=== PATIENT | male | born 1960 | race Two or more races ===

== ENCOUNTER 2021-11-05 16:33 | Emergency (ER) | payer OTHER ==
[~2021-11-05] VITALS: Ht 172.7 cm; Wt 88.9 kg
[2021-11-05] MEDS ORDERED: LIPITOR (18:01)
[2021-11-05] MEDS ORDERED: MONTELUKA (18:02)
[2021-11-05] MEDS ORDERED: FLUTICASONE PROPIONA (18:03)
[2021-11-05] MEDS ORDERED: SALMETEROL (18:04)
[2021-11-05] MEDS ORDERED: ALBUTEROL (18:04)
[2021-11-05] MEDS ORDERED: SYNTHROID (18:05)
[2021-11-05] MEDS ORDERED: PROTONIX (18:05)
== END 2021-11-05 22:59 | disposition home or self-care (01) ==
LOC: ER 16:33
DX: J44.1 Chronic obstructive pulmonary disease with (acute) exacerbation (principal)

== ENCOUNTER 2022-01-18 19:00 | Emergency (ER) | payer OTHER ==
[~2022-01-18] VITALS: Ht 175.3 cm; Wt 82.1 kg
[~2022-01-18 19:00] MED LIST: ALBUTEROL; FLUTICASONE PROPIONA; LIPITOR; MONTELUKA; PROTONIX; SALMETEROL; SYNTHROID
[2022-01-18] MEDS ORDERED: DICLOFENAC SODI75 MG PO (21:04)
[2022-01-18] MEDS ORDERED: BACTRIM DS TAB1 EACH PO (21:04)
== END 2022-01-18 21:09 | disposition home or self-care (01) ==
LOC: ER 19:00
DX: L02.512 Cutaneous abscess of left hand (principal)

== ENCOUNTER 2023-05-10 11:32 | Emergency (ER) | payer OTHER ==
[~2023-05-10] VITALS: Ht 172.7 cm; Wt 86.2 kg
[~2023-05-10 11:32] MED LIST changes: +BACTRIM DS TAB1 EACH PO; +DICLOFENAC SODI75 MG PO
[2023-05-10] MEDS ORDERED: SYNTHROID175 MCG PO (12:01)
[2023-05-10] MEDS ORDERED: LIPITOR40 M1 PO (12:02)
[2023-05-10] MEDS ORDERED: FAMOtidine 10 MG/ML (4ML VIAL) IV ONE (15:15)
[2023-05-10] MEDS ORDERED: ONDANSETRON HCL 2 MG/ML VIAL IM ONE (15:15)
[2023-05-10 15:39] LABS: HEMATOCRIT 45.4 % (39.0-48.0); HEMOGLOBIN 15.5 g/dL (13-16.00); MEAN CELL VOLUME 91.3 fL (80.0-100.00); MEAN CORPUSCULAR HEMOGLOBIN 31.1 pg (27.00-32.0); MEAN CORPUSCULAR HGB CONC 34.1 g/dl (32.0-36.0); PLATELET COUNT 258 K/uL (150-450); RED BLOOD COUNT 4.98 M/uL (4.00-6.00)
== END 2023-05-10 16:15 ==
LOC: ER 11:32
PROVIDERS: General Practice
DX: R53.81 Other malaise (principal); A05.9 Bacterial foodborne intoxication, unspecified; R10.13 Epigastric pain; I10 Essential (primary) hypertension; E03.8 Other specified hypothyroidism